=== PATIENT | male | born 1945 | race African-American/Black ===

== ENCOUNTER 2025-01-24 16:20 | Inpatient (IN) | payer BC ==
[~2025-01-24] VITALS: Ht 170.2 cm; Wt 67.1 kg
[2025-01-24 16:24] VITALS: O2SAT 97
[2025-01-24 19:44] LABS: BASOPHILS % 0.4 % (0.0-2.0); EOSINOPHILS % 0.3 % (0.0-5.0); HEMATOCRIT. 27.0 % (42.0-52.0); HEMOGLOBIN. 8.3 g/dL (14.0-18.0); LYMPHOCYTES % 16.6 % (20.0-50.0); MEAN PLATELET VOLUME 9.4 fl (7.4-10.4); MONOCYTES % 8.5 % (2.0-8.0); NEUTROPHILS % 74.2 % (40.0-76.0); PLATELET 345 x1000/uL (130-400); RED BLOOD CELL COUNT 3.58 mill/uL (4.7-6.1); RED CELL DISTRIBUTION WIDTH 19.2 % (11.6-14.6)
[2025-01-24 20:00] LABS: ASPARTATE AMINOTRANSFERASE 14 IU/L (<34); ETHANOL BLOOD < 10 mg/dL (<10); INR 1.1; PROTEIN TOTAL 7.7 g/dL (6.0-8.3)
[2025-01-24 20:01] LABS: BILIRUBIN DIRECT < 0.1 mg/dL (<=3.0)
[2025-01-24 20:02] LABS: BILIRUBIN TOTAL 0.2 mg/dL (0.1-1.0)
[2025-01-24 20:16] LABS: UREA NITROGEN BLOOD 121 mg/dL (9-23)
[2025-01-24 20:17] LABS: CREATININE 6.8 mg/dL (0.6-1.3)
[2025-01-24] MEDS ORDERED: SODIUM BICARBONATE 8.4% 50MEQ/50ML VIAL IV ONE (20:30)
[2025-01-24] MEDS: SODIUM CHLORIDE 0.9% 1,000 ML IV ONE ×2 (20:30→21:41)
[2025-01-24 21:05] LABS: BG BASE EXCESS -10.3 mmol/L (-2.0-3.0); BG CARBOXYHEMOGLOBIN 1.1 % (0.5-1.5); BG DEOXYHEMOGLOBIN 1.7 % (0.0-5.0); BG HCO3 ACT 14.2 mmol/L (21.0-28.0); BG METHEMOGLOBIN 0.3 % (0.5-1.5); BG OXYGEN SATURATION 98.3 % (94.0-98.0); BG OXYHEMOGLOBIN 96.9 % (94.0-98.0); BG PCO2 26.8 mmHg (35.0-48.0); BG PH 7.343 (7.350-7.450); BG PO2 110.1 mmHg (83.0-108.0); BG TOTAL HEMOGLOBIN 8.5 g/dL (13.5-17.5)
[2025-01-24] MEDS ORDERED: SODIUM ZIRCONIUM CYCLOSILICATE 10GM/PACKET PO NR (21:49)
[2025-01-24] MEDS: CEFTRIAXONE 1GM/50ML 50 ML IV ONE (21:54)
[2025-01-24] MEDS: INSULIN REGULAR (HUMULIN R) 1000UNITS/10ML VIAL IV ONE (22:16)
[2025-01-24] MEDS: CALCIUM GLUCONATE 100MG/ML 10ML VIAL IV ONE (22:26)
[2025-01-24] MEDS: SODIUM BICARBONATE 8.4% 50MEQ/50ML SYR IV NR (22:26)
[2025-01-24] MEDS: DEXTROSE 50% WATER 50ML SYRINGE IV ONE (22:26)
[2025-01-24] MEDS: SODIUM BICARBONATE 150 MEQ in SODIUM CHLORIDE 0.45% 850 ML IV SCH (22:27)
[2025-01-24] MEDS ORDERED: NALOXONE HCL 0.4MG/ML VIAL IV PRN (23:00)
[2025-01-24] MEDS ORDERED: HYDROCODONE/ACETAMINOPHEN 5/325MG TABLET PO PRN (23:00)
[2025-01-24] MEDS ORDERED: CLONIDINE 0.1MG TABLET PO PRN (23:00)
[2025-01-24] MEDS ORDERED: ZOLPIDEM TARTRATE 5MG TABLET PO PRN (23:00)
[2025-01-24] MEDS ORDERED: MAGNESIUM/ALUMINUM HYDROXIDE/SIMETHICONE 30ML UDC PO PRN (23:00)
[2025-01-24] MEDS ORDERED: VANCOMYCIN 1.75GM PMX (XELLIA) 350 ML IV SCH (23:00)
[2025-01-24] MEDS ORDERED: ONDANSETRON HCL 4MG/2ML INJ IV PRN (23:00)
[2025-01-24] MEDS ORDERED: MORPHINE SULFATE 2 MG/ML INJ (NOT FOR IM USE) IV PRN (23:00)
[2025-01-24 23:30] VITALS: BP 133/73; PULSE 80; RESP 13; TEMP 36.8628
[2025-01-25] VITALS (7 sets, daily range): BP systolic 125–138; BP diastolic 67–79; PULSE 71–118; RESP 9–26; TEMP 36.2–36.7; O2SAT 95–99
[2025-01-25 01:22] LABS: CLARITY URINE TURBID (CLEAR); COLOR URINE YELLOW (YELLOW); GLUCOSE URINE NEGATIVE (NEGATIVE); KETONES URINE NEGATIVE (NEGATIVE); LEUKOCYTE ESTERASE URINE 3+ (NEGATIVE); NITRITE URINE POSITIVE (NEGATIVE); OCCULT BLOOD URINE 1+ (NEGATIVE); PH URINE 6.0 (4.5-8.0); PROTEIN URINE 1+ (NEGATIVE); SPECIFIC GRAVITY URINE 1.011 (1.005-1.030); UROBILINOGEN URINE 0.2 E.U./dL (0.2-1.0)
[2025-01-25 01:34] LABS: SQUAMOUS EPITHELIAL CELL URINE RARE /lpf (RARE/1+); WBC URINE 15-25 /hpf (0-2)
[2025-01-25 01:35] LABS: BACTERIA URINE 3+
[2025-01-25 01:47] LABS: *AMPHETAMINES SCREEN URINE NEGATIVE (NEGATIVE); *BARBITURATES SCREEN URINE NEGATIVE (NEGATIVE); *BENZODIAZEPINES SCREEN URINE NEGATIVE (NEGATIVE); *COCAINE SCREEN URINE NEGATIVE (NEGATIVE); CANNABINOID URINE SCREEN NEGATIVE (NEGATIVE); ECSTASY MDMA SCREEN URINE NEGATIVE (NEGATIVE); METHADONE URINE SCREEN NEGATIVE (NEGATIVE); OPIATES URINE SCREEN NEGATIVE (NEGATIVE); PHENCYCLIDINE URINE SCREEN NEGATIVE (NEGATIVE)
[2025-01-25] MEDS: VANCOMYCIN 1.75GM PMX (XELLIA) 350 ML IV SCH (04:39)
[2025-01-25] MEDS: PANTOPRAZOLE SODIUM 40 MG/VIAL IV SCH (10:07)
[2025-01-25] MEDS: ENOXAPARIN 30MG/0.3ML SYR SUBCUT SCH (10:07)
[2025-01-25] MEDS: PIPERACILLIN/TAZO 3.375G/50ML 50 ML IV SCH (10:08)
[2025-01-25 13:05] LABS: BASOPHILS % 0.3 % (0.0-2.0); EOSINOPHILS % 0.3 % (0.0-5.0); HEMATOCRIT. 22.4 % (42.0-52.0); HEMOGLOBIN. 7.1 g/dL (14.0-18.0); LYMPHOCYTES % 18.4 % (20.0-50.0); MEAN PLATELET VOLUME 9.4 fl (7.4-10.4); MONOCYTES % 12.0 % (2.0-8.0); NEUTROPHILS % 69.0 % (40.0-76.0); PLATELET 284 x1000/uL (130-400); RED BLOOD CELL COUNT 3.03 mill/uL (4.7-6.1); RED CELL DISTRIBUTION WIDTH 18.6 % (11.6-14.6)
[2025-01-25 13:16] LABS: TROPONIN I HIGH SENSITIVITY 14 ng/L (3.0-53)
[2025-01-25 13:24] LABS: CREATININE 6.4 mg/dL (0.6-1.3); UREA NITROGEN BLOOD 116.0 mg/dL (9-23)
[2025-01-25] MEDS ORDERED: SODIUM POLYSTYRENE SULFONATE 15 G/60 ML BOT PO ONE (15:45)
[2025-01-25] MEDS: QUETIAPINE FUMARATE 25MG TABLET PO SCH (16:56)
[2025-01-25] MEDS: SODIUM ZIRCONIUM CYCLOSILICATE 10GM/PACKET PO SCH (16:56)
[2025-01-26] VITALS (7 sets, daily range): BP systolic 137–156; BP diastolic 81; PULSE 75–99; RESP 12–20; TEMP 36.3–36.9; O2SAT 98
[2025-01-26 13:25] LABS: BASOPHILS % 0.4 % (0.0-2.0); EOSINOPHILS % 0.4 % (0.0-5.0); HEMATOCRIT. 24.6 % (42.0-52.0); HEMOGLOBIN. 7.8 g/dL (14.0-18.0); LYMPHOCYTES % 12.0 % (20.0-50.0); MEAN PLATELET VOLUME 9.2 fl (7.4-10.4); MONOCYTES % 6.6 % (2.0-8.0); NEUTROPHILS % 80.6 % (40.0-76.0); PLATELET 271 x1000/uL (130-400); RED BLOOD CELL COUNT 3.26 mill/uL (4.7-6.1); RED CELL DISTRIBUTION WIDTH 19.4 % (11.6-14.6)
[2025-01-26 13:45] LABS: CREATININE 6.8 mg/dL (0.6-1.3); UREA NITROGEN BLOOD 122.0 mg/dL (9-23)
[2025-01-26] MEDS: TAMSULOSIN HCL 0.4MG SR CAPSULE PO SCH (21:00)
[2025-01-26] MEDS: FINASTERIDE 5MG TABLET PO SCH (21:00)
[2025-01-26] MEDS: SODIUM ZIRCONIUM CYCLOSILICATE 10GM/PACKET PO SCH (21:00)
[2025-01-27 08:00] VITALS: BP 134/76; PULSE 77; RESP 17; TEMP 36.6; O2SAT 98
[2025-01-27] MEDS ORDERED: ALBUTEROL (0.083%) 2.5MG/3ML NEB HHN SCH (10:00)
[2025-01-27] MEDS: SODIUM ZIRCONIUM CYCLOSILICATE 10GM/PACKET PO SCH (11:32)
[2025-01-27 12:00] VITALS: BP 129/73; PULSE 83; RESP 18; TEMP 37; O2SAT 98
[2025-01-27 17:56] VITALS: BP 130/72; PULSE 80; RESP 18; TEMP 36.4; O2SAT 98
[2025-01-27 20:00] VITALS: BP 146/83; PULSE 82; RESP 15; TEMP 36.5; O2SAT 98
[2025-01-28 04:00] VITALS: BP 127/79; PULSE 76; RESP 18; TEMP 36.6; O2SAT 97
[2025-01-28 08:00] VITALS: BP 118/73; PULSE 84; RESP 18; TEMP 36.6; O2SAT 98
[2025-01-28 12:00] VITALS: BP 148/95; PULSE 93; RESP 20; TEMP 37; O2SAT 98
[2025-01-28 14:11] LABS: UREA NITROGEN BLOOD 86 mg/dL (9-23)
[2025-01-28 14:12] LABS: ASPARTATE AMINOTRANSFERASE 14 IU/L (<34); PROTEIN TOTAL 6.9 g/dL (6.0-8.3)
[2025-01-28 14:13] LABS: BILIRUBIN DIRECT < 0.1 mg/dL (<=3.0); BILIRUBIN TOTAL < 0.2 mg/dL (0.1-1.0); PHOSPHORUS 6.8 mg/dL (2.5-4.9)
[2025-01-28 14:27] LABS: CREATININE 7.3 mg/dL (0.6-1.3)
[2025-01-28 16:00] VITALS: BP 125/77; PULSE 93; RESP 18; TEMP 36.8; O2SAT 98
[2025-01-28 20:00] VITALS: BP 141/86; PULSE 82; RESP 18; TEMP 36.4; O2SAT 100
[2025-01-29 08:00] VITALS: BP 146/100; PULSE 85; RESP 19; TEMP 36.6; O2SAT 97
[2025-01-29 08:06] LABS: BASOPHILS % 0.4 % (0.0-2.0); EOSINOPHILS % 0.2 % (0.0-5.0); HEMATOCRIT. 24.3 % (42.0-52.0); HEMOGLOBIN. 7.8 g/dL (14.0-18.0); LYMPHOCYTES % 18.3 % (20.0-50.0); MEAN PLATELET VOLUME 9.2 fl (7.4-10.4); MONOCYTES % 7.2 % (2.0-8.0); NEUTROPHILS % 73.9 % (40.0-76.0); PLATELET 272 x1000/uL (130-400); RED BLOOD CELL COUNT 3.28 mill/uL (4.7-6.1); RED CELL DISTRIBUTION WIDTH 18.1 % (11.6-14.6)
[2025-01-29] MEDS: INSULIN REGULAR (HUMULIN R) 1000UNITS/10ML VIAL IV NR (09:07)
[2025-01-29] MEDS: DEXTROSE 50% WATER 50ML SYRINGE IV NR (09:07)
[2025-01-29] MEDS: SODIUM BICARBONATE 8.4% 50MEQ/50ML SYR IV NR (09:07)
[2025-01-29] MEDS: SODIUM ZIRCONIUM CYCLOSILICATE 10GM/PACKET PO NR (09:15)
[2025-01-29 09:59] LABS: CREATININE 7.2 mg/dL (0.6-1.3); UREA NITROGEN BLOOD 125.0 mg/dL (9-23)
[2025-01-29 12:00] VITALS: BP 115/69; PULSE 76; RESP 18; TEMP 36.4; O2SAT 98
[2025-01-29 16:00] VITALS: BP 129/77; PULSE 76; RESP 19; TEMP 36.6; O2SAT 98
[2025-01-29] MEDS: CEFTRIAXONE 1GM/50ML 50ML IV SCH (17:00)
[2025-01-29] MEDS: ALBUTEROL (0.5%) 2.5MG/0.5ML NEB HHN ONE (19:39)
[2025-01-29 20:00] VITALS: BP 147/84; PULSE 94; RESP 19; TEMP 36.7; O2SAT 98
[2025-01-30] VITALS: BP 137/67; PULSE 98; RESP 18; TEMP 36.8; O2SAT 98
[2025-01-30 04:00] VITALS: PULSE 97; RESP 17; TEMP 36.7; O2SAT 96
[2025-01-30] MEDS ORDERED: HALOPERIDOL LACTATE 5MG/ML VIAL IM PRN (15:15)
[2025-01-30 16:00] VITALS: BP 126/66; PULSE 68; RESP 18; TEMP 36.2; O2SAT 97
[2025-01-31] VITALS: BP 147/83; PULSE 74; RESP 18; TEMP 36.6; O2SAT 99
[2025-01-31 12:00] VITALS: BP 138/72; PULSE 82; RESP 18; TEMP 36.7; O2SAT 96
[2025-01-31 16:00] VITALS: BP 139/91; PULSE 67; RESP 19; TEMP 36.6; O2SAT 98
[2025-02-01] VITALS: BP 147/79; PULSE 77; RESP 17; TEMP 36.2; O2SAT 97
[2025-02-01 08:00] VITALS: BP 143/70; PULSE 67; RESP 19; TEMP 36.6; O2SAT 98
[2025-02-01] MEDS: ACETAMINOPHEN 325MG TABLET PO PRN (17:45)
[2025-02-01 20:00] VITALS: BP 134/66; PULSE 66; RESP 66; TEMP 37.1; O2SAT 18
[2025-02-02] VITALS: BP 143/84; PULSE 71; RESP 19; TEMP 37; O2SAT 96
[2025-02-02 04:00] VITALS: BP 120/62; PULSE 71; RESP 17; TEMP 36.1; O2SAT 99
[2025-02-02 08:00] VITALS: BP 133/76; PULSE 57; RESP 57; TEMP 36.6; O2SAT 18
[2025-02-02 20:00] VITALS: BP 132/80; PULSE 75; RESP 16; TEMP 36.6; O2SAT 98
[2025-02-03] VITALS: BP 131/78; PULSE 67; RESP 17; TEMP 36.7; O2SAT 97
[2025-02-03 04:00] VITALS: BP 134/79; PULSE 63; RESP 18; TEMP 37.1; O2SAT 97
[2025-02-03 08:00] VITALS: BP 129/76; PULSE 68; RESP 18; TEMP 36.9; O2SAT 99
[2025-02-03 09:28] VITALS: BP 143/71; PULSE 76; RESP 19; TEMP 36.6; O2SAT 98
[2025-02-03 12:00] VITALS: BP 137/68; PULSE 74; RESP 18; TEMP 36.4; O2SAT 98
[2025-02-03 16:00] VITALS: BP 132/72; PULSE 72; RESP 18; TEMP 36.8; O2SAT 99
[2025-02-04 08:00] VITALS: BP 113/56; PULSE 70; RESP 18; TEMP 36.6; O2SAT 100
[2025-02-04 12:00] VITALS: BP 137/65; PULSE 68; RESP 18; TEMP 36.4; O2SAT 100
[2025-02-04 20:00] VITALS: BP 118/59; PULSE 72; RESP 18; TEMP 36.7; O2SAT 100
[2025-02-05] VITALS: BP 129/72; PULSE 58; RESP 18; TEMP 36.7; O2SAT 100
[2025-02-05 04:00] VITALS: RESP 16
[2025-02-05 08:00] VITALS: BP 134/73; PULSE 60; RESP 20; TEMP 36.7; O2SAT 98
[2025-02-05 12:00] VITALS: BP 129/70; PULSE 62; RESP 19; TEMP 36.6; O2SAT 98
[2025-02-05 16:00] VITALS: BP 130/75; PULSE 61; RESP 18; TEMP 36.7; O2SAT 98
[2025-02-06 04:00] VITALS: RESP 16
[2025-02-06 08:00] VITALS: BP 144/78; PULSE 72; RESP 16; TEMP 36.6
[2025-02-06 12:00] VITALS: BP 123/60; PULSE 66; RESP 14; TEMP 36.7
[2025-02-06 20:00] VITALS: BP 161/85; PULSE 78; RESP 18; TEMP 36.7; O2SAT 99
[2025-02-07] VITALS: BP 133/58; PULSE 61; RESP 19; TEMP 36.6; O2SAT 100
[2025-02-07 04:00] VITALS: BP 140/64; PULSE 70; RESP 18; TEMP 36.5; O2SAT 96
[2025-02-07 08:00] VITALS: BP 146/91; PULSE 76; RESP 16; TEMP 36.1; O2SAT 100
[2025-02-07] MEDS ORDERED: TOPUD PO (08:40)
[2025-02-07 12:00] VITALS: BP 143/75; PULSE 66; RESP 16; TEMP 36.4; O2SAT 98
[2025-02-07 16:00] VITALS: BP 145/78; PULSE 69; RESP 16; TEMP 36.7; O2SAT 98
[2025-02-07 20:00] VITALS: BP 131/61; PULSE 71; RESP 17; TEMP 36.4; O2SAT 99
[2025-02-08] VITALS: BP 138/70; PULSE 60; RESP 18; TEMP 36.4; O2SAT 99
[2025-02-08 04:00] VITALS: BP 131/71; PULSE 60; RESP 18; TEMP 36.4; O2SAT 99
[2025-02-08 20:00] VITALS: BP 131/78; PULSE 80; RESP 18; TEMP 36.2; O2SAT 97
[2025-02-09 08:00] VITALS: BP 154/80; PULSE 72; RESP 16; TEMP 36.3; O2SAT 98
[2025-02-09 12:00] VITALS: BP 146/74; PULSE 63; RESP 18; TEMP 36.6; O2SAT 100
[2025-02-09 16:00] VITALS: BP 140/72; PULSE 68; RESP 18; TEMP 36.3; O2SAT 100
[2025-02-10] VITALS: BP 156/92; PULSE 77; RESP 17; TEMP 35.7; O2SAT 95
[2025-02-10 20:00] VITALS: BP 133/80; PULSE 70; RESP 18; TEMP 36.7; O2SAT 99
[2025-02-11 08:00] VITALS: BP 136/79; PULSE 82; RESP 18; TEMP 36.7
[2025-02-11] MEDS ORDERED: QUET25TA PO (11:29)
[2025-02-11] MEDS ORDERED: TAMS-54 PO (11:29)
[2025-02-11 12:51] VITALS: BP 136/79; PULSE 82; RESP 18; TEMP 98
== END 2025-02-11 17:50 | disposition home or self-care (01) | DRG 871 ==
LOC: ER 16:20 → 5EST 20:41 → EDBEDREQSVC 20:48 → EDBEDREQ 20:48 → EDBEDREQTM 20:48 → ENRESERV 22:12 → 6EST 01-26 10:40 → 7EST 02-02 21:47
PROVIDERS: ADMIT Internal Medicine; ATTEND Internal Medicine
DX: A41.9 Sepsis, unspecified organism (principal); L89.133 Pressure ulcer of right lower back, stage 3; L89.143 Pressure ulcer of left lower back, stage 3; N17.0 Acute kidney failure with tubular necrosis; K56.600 Partial intestinal obstruction, unspecified as to cause; G93.40 Encephalopathy, unspecified; E87.20 Acidosis, unspecified; N13.6 Pyonephrosis; Z59.00 Homelessness unspecified; N18.9 Chronic kidney disease, unspecified; D64.9 Anemia, unspecified; I12.9 Hypertensive chronic kidney disease with stage 1 through stage 4 chronic kidney disease, or unspecified chronic kidney disease; F39 Unspecified mood [affective] disorder; E87.5 Hyperkalemia; N40.0 Benign prostatic hyperplasia without lower urinary tract symptoms; I95.9 Hypotension, unspecified; F14.90 Cocaine use, unspecified, uncomplicated; K56.41 Fecal impaction; Z91.158 Patient's noncompliance with renal dialysis for other reason; Z79.899 Other long term (current) drug therapy
CPT/HCPCS: 36415; 36600; 74176; 80048; 80076; 80202; 80305; 80320; 81003; 82140; 82375; 82550; 82805; 83735; 84100; 84443; 84484; 85025; 87077; 87186; 93005; 93970; 99291; A4606; A4615; J0612; J0696; J1650; J1815; J2470; J2543; J3373; J3490; J7030; G0480